=== PATIENT | female | born 1945 | race Caucasian/White ===

== ENCOUNTER 2021-11-24 10:44 | Outpatient (CLI) | payer MEDICARE | END 2021-11-24 10:45 | disposition home or self-care (01) | LOC: BICMAMMO 10:44 | PROVIDERS: ATTEND Family Medicine | DX: Z12.31 Encounter for screening mammogram for malignant neoplasm of breast (principal) | CPT/HCPCS: 77063; 77067 ==

== ENCOUNTER 2021-12-14 10:21 | Outpatient (CLI) | payer MEDICARE | END 2021-12-14 10:22 | disposition home or self-care (01) | LOC: BICMAMMO 10:21 | PROVIDERS: ATTEND Family Medicine | DX: R92.2 Inconclusive mammogram (principal) | CPT/HCPCS: 77065; G0279 ==

== ENCOUNTER 2023-04-14 09:27 | Outpatient (CLI) | payer MEDICARE | END 2023-04-14 09:28 | disposition home or self-care (01) | LOC: MRI 09:27 | PROVIDERS: ATTEND Family Medicine | DX: R41.89 Other symptoms and signs involving cognitive functions and awareness (principal); I67.89 Other cerebrovascular disease | CPT/HCPCS: 70551 ==